=== PATIENT | male | born 2000 | race Caucasian/White ===

== ENCOUNTER 2021-03-12 08:35 | Emergency (ER) | payer MEDICAID ==
[~2021-03-12] VITALS: Ht 167.6 cm; Wt 59.1 kg
[2021-03-12] MEDS ORDERED: DIPH25 PO (08:42)
[2021-03-12] MEDS ORDERED: DICL25 PO (08:45)
[2021-03-12 09:15] VITALS: BP 123/68
[2021-03-12] MEDS ORDERED: ACETAMINOPHEN 500 MG TABLET PO ONE (09:30)
[2021-03-12] MEDS ORDERED: DiphenhydrAMINE HCL 50 MG/ML VIAL IVP ONE (09:30)
[2021-03-12] MEDS ORDERED: MethylPREDNISolone SOD SUCC 125 MG/2 ML VIAL IVP ONE (09:30)
== END 2021-03-12 10:00 | disposition home or self-care (01) ==
LOC: EMS 08:39
DX: T78.40XA Allergy, unspecified, initial encounter (principal); S40.011A Contusion of right shoulder, initial encounter; J45.909 Unspecified asthma, uncomplicated; F17.210 Nicotine dependence, cigarettes, uncomplicated; F12.90 Cannabis use, unspecified, uncomplicated; Z79.899 Other long term (current) drug therapy; X58.XXXA Exposure to other specified factors, initial encounter
CPT/HCPCS: 96374; 96375; 99284; J1200; J2930